=== PATIENT | female | born 1975 | race Caucasian/White ===

== ENCOUNTER 2019-10-30 13:25 | Emergency (ER) | payer OTHER ==
[2019-10-30] MEDS ORDERED: Bacitracin Oint 1 GM U/D Packet TOP ONE (13:54)
[2019-10-30] MEDS ORDERED: Diphtheria,Pertussis(Acell),Tetanus Vaccine 0.5 ML Syringe IM ONE (13:55)
--- NOTE | 2019-10-30 13:59 | EDM.PDOC ---
ED HPI GENERAL MEDICAL PROBLEM - General Chief Complaint: Bite:Animal, Insect Stated Complaint: DOG BITE Time Seen by Provider: 10/30/19 13:39 - History of Present Illness INITIAL COMMENTS - FREE TEXT/NARRATIVE: History of present illness: Patient presents with a dog bite she was walking on the sidewalk in public property when she was attacked by dog the dog bit her about her right calf there is a small wound to the right calf no other injuries no other complaints tetanus is not up-to-date no medical problems allergic to penicillin and sulfa nothing makes it better or worse Review of systems: As per history of present illness and below otherwise all systems reviewed and negative. Past medical history: As per history of present illness and as reviewed below otherwise noncontributory. Surgical history: As per history of present illness and as reviewed below otherwise noncontributory. Social history: No reported history of drug or alcohol abuse. Family history: As per history of present illness and as reviewed below otherwise noncontributory. Physical exam: HEENT: Atraumatic, normocephalic, pupils reactive, negative for conjunctival pallor or scleral icterus, mucous membranes moist, throat clear, neck supple, nontender, trachea midline. Lungs: Clear to auscultation, breath sounds equal bilaterally, chest nontender. Heart: S1S2, regular, negative for clicks, rubs, or JVD. Abdomen: Soft, nondistended, nontender. Negative for masses or hepatosplenomegaly. Negative for costovertebral tenderness. Pelvis: Stable nontender. Genitourinary: Deferred. Rectal: Deferred. Extremities: Atraumatic, negative for cords or calf pain. Neurovascular unremarkable. 1 Centimeter laceration bleeding controlled right calf posteriorly Neuro: Awake, alert, oriented. Cranial nerves II through XII unremarkable. Cerebellum unremarkable. Motor and sensory unremarkable throughout. Exam nonfocal. Diagnostics: [] Therapeutics: [] Impression: [] Plan: And dress wound update tetanus discharge home. [] Definitive disposition and diagnosis as appropriate pending reevaluation and review of above. Right leg Pain Score (Numeric/FACES): 2 - Related Data Allergies Allergy/AdvReac Type Severity Reaction Status Date / Time Penicillins Allergy Hives Verified 10/30/19 13:40 Sulfa (Sulfonamide Allergy Nausea and Verified 10/30/19 13:40 Antibiotics) Vomiting Home Meds: Home Meds Doxycycline [Vibra-Tabs] 100 mg PO Q12HR #20 tab 10/30/19 [Rx] Past Medical History - Past Health History Medical/Surgical History: Denies Medical/Surgical History - Infectious Disease History Infectious Disease History: Reports: None - Past Surgical History HEENT Surgical History: Reports: Tonsillectomy GI Surgical History: Reports: Cholecystectomy Social & Family History - Family History Family Medical History: Noncontributory - Tobacco Use Smoking Status *Q: Never Smoker - Recreational Drug Use Recreational Drug Use: No ED ROS GENERAL - Review of Systems Review Of Systems: See Below ED EXAM, ANIMAL BITE - Physical Exam Exam: See Below Course - Vital Signs Last Recorded V/S: Last Vital Signs Temp 36.3 C 10/30/19 13:41 Pulse 54 L 10/30/19 14:28 Resp 16 10/30/19 14:28 BP 117/79 10/30/19 14:28 Pulse Ox 100 10/30/19 14:28 - Orders/Labs/Meds Meds: Medications Discontinued Medications Generic Name Dose Route Start Last Admin Trade Name David PRN Reason Stop Dose Admin Bacitracin 1 dose 10/30/19 13:54 10/30/19 14:23 Bacitracin Oint 1 Gm TOP 10/30/19 13:55 1 dose ONETIME ONE Administration Diphtheria/Tetanus/Acell Pertussis 0.5 ml 10/30/19 13:55 10/30/19 14:23 Adacel IM 10/30/19 13:56 0.5 ml .ONCE ONE Administration Departure - Departure Time of Disposition: 14:30 Disposition: Home, Self-Care 01 Clinical Impression: Dog bite - Discharge Information Prescriptions: Doxycycline [Vibra-Tabs] 100 mg PO Q12HR #20 tab Instructions: Animal Bite, Adult, [id number] Referrals: PCP,None [Primary Care Provider] - Forms: ED Department Discharge Additional Instructions: The following information is given to patients seen in the emergency department who are being discharged to home. This information is to outline your options for follow-up care. We provide all patients seen in our emergency department with a follow-up referral. The need for follow-up, as well as the timing and circumstances, are variable depending upon the specifics of your emergency department visit. If you don't have a primary care physician on staff, we will provide you with a referral. We always advise you to contact your personal physician following an emergency department visit to inform them of the circumstance of the visit and for follow-up with them and/or the need for any referrals to a consulting specialist. The emergency department will also refer you to a specialist when appropriate. This referral assures that you have the opportunity for follow-up care with a specialist. All of these measure are taken in an effort to provide you with optimal care, which includes your follow-up. Under all circumstances we always encourage you to contact your private physician who remains a resource for coordinating your care. When calling for follow-up care, please make the office aware that this follow-up is from your recent emergency room visit. If for any reason you are refused follow-up, please contact the [facility] Emergency Department at and asked to speak to the emergency department charge nurse. Sepsis Event Note (ED) - Evaluation Sepsis Screening Result: No Definite Risk
== END 2019-10-30 14:52 | disposition home or self-care (01) ==
LOC: MW.ED 13:25
DX: S81.851A Open bite, right lower leg, initial encounter (principal); Z23 Encounter for immunization; Z88.0 Allergy status to penicillin; Z88.2 Allergy status to sulfonamides; W54.0XXA Bitten by dog, initial encounter
CPT/HCPCS: 90471; 90715; 99282; 99283